=== PATIENT | male | born 1965 | race Caucasian/White ===

== ENCOUNTER 2017-05-05 21:32 | Emergency (ER) | payer SELFPAY ==
[~2017-05-05] VITALS: Ht 175.3 cm; Wt 91.0 kg
[2017-05-05 22:03] LABS: ADD MIUA? NO; BILIRUBIN NEGATIVE; BLOOD NEGATIVE; COLOR COLORLESS ((YELLOW)); GLUCOSE (STRIP) NEGATIVE; KETONES 20; LEUKOCYTES NEGATIVE; NITRITE NEGATIVE; PROTEIN (STRIP) NEGATIVE; SPECIFIC GRAVITY 1.002 (1.000-1.030); UROBILINOGEN 0.2 MG/DL (0.2-1.0)
[2017-05-05 22:10] LABS: HEMATOCRIT 45.4 % (38.0-50.0); MCHC 33.7 G/DL (30.0-36.0); MEAN PLAT.VOLUME 10.6 uM^3 (9.0-12.4); PLATELET COUNT 164 K/uL (156-360); RBC DIS.WIDTH-CV 12.4 % (11.8-14.6); RBC DIS.WIDTH-SD 40.8 % (39-53); WHITE BLOOD COUNT 8.1 K/uL (4.1-10.2)
[2017-05-05 22:26] LABS: CHLORIDE 104 mEq/L (99-109); POTASSIUM 4.1 mEq/L (3.7-5.4); SODIUM 138 mEq/L (136-147)
[2017-05-05 22:28] LABS: GLUCOSE 102 mg/dL (70-99)
[2017-05-05 22:29] LABS: ANION GAP 11 MEQ/L (2-14)
[2017-05-05 22:32] LABS: GFR ESTIMATE (CALCULATED) > 59 mL/min/; UREA NITROGEN (BUN) 16 mg/dL (9-23)
[2017-05-05 22:34] LABS: CREATINE KINASE 358 IU/L (1-294)
[2017-05-05] MEDS ORDERED: MOTRIN800 MG PO (23:52)
[2017-05-05] MEDS ORDERED: ZOFRAN ODT4 MG PO (23:52)
[2017-05-05] MEDS ORDERED: FIORICET 50-301 EACH PO (23:52)
[2017-05-06 01:02] VITALS: BP 118/78
== END 2017-05-06 01:07 | disposition home or self-care (01) ==
LOC: EME → EDBD 21:32 → RME 21:32 → EME 21:32 → RME 05-06 01:07
PROVIDERS: Physician Assistant
DX: T67.5XXA Heat exhaustion, unspecified, initial encounter (principal); X30.XXXA Exposure to excessive natural heat, initial encounter; Y93.01 Activity, walking, marching and hiking; R74.8 Abnormal levels of other serum enzymes; I95.1 Orthostatic hypotension; R42 Dizziness and giddiness; R51 Headache; R11.0 Nausea
CPT/HCPCS: 80048; 81003; 82550; 85027; 93005; 99281; 99285; J2405; J7030